=== PATIENT | female | born 1995 | race American Indian/Alaskan Native ===

== ENCOUNTER 2018-09-23 10:36 | Emergency (ER) | payer OTHER ==
[2018-09-23 11:21] VITALS: BP 146/79
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
[2018-09-23] MEDS ORDERED: IBUPROFEN PO ONE (13:51)
[2018-09-23] MEDS ORDERED: IBUPROFEN ONE (13:53)
== END 2018-09-23 13:57 | disposition home or self-care (01) ==
LOC: ED 10:36
DX: S39.012A Strain of muscle, fascia and tendon of lower back, initial encounter (principal); M25.561 Pain in right knee; M25.562 Pain in left knee; M79.602 Pain in left arm; M79.601 Pain in right arm; F17.200 Nicotine dependence, unspecified, uncomplicated; F12.10 Cannabis abuse, uncomplicated; V49.49XA Driver injured in collision with other motor vehicles in traffic accident, initial encounter; Y93.89 Activity, other specified; Y92.89 Other specified places as the place of occurrence of the external cause; Y99.8 Other external cause status
CPT/HCPCS: 99282